=== PATIENT | male | born 2000 | race American Indian/Alaskan Native ===

== ENCOUNTER 2020-04-24 23:59 | Emergency (ER) | payer SELFPAY ==
[2020-04-25 04:17] VITALS: BP 126/72
--- NOTE | 2020-04-25 05:35 | Emergency Department Report ---
ED Male HPI - General Chief complaint: Urogenital-Male Stated complaint: POSS STD Source: patient Mode of arrival: Ambulatory Limitations: No Limitations - History of Present Illness Initial comments: Patient is a 19-year-old -[place] male with no past medical history who presents to the ED with complaint of acute onset persistent dysuria, penile pain, urinary frequency and urgency, and penile discharge for the last 2 days after having unprotected sexual intercourse 4 days ago. Patient states that the pain is worsened in the last 12 hours. Patient denies dizziness, syncope, fever, chills, cough, abdominal pain, testicular pain, low back pain, hematuria, diarrhea, nausea and vomiting. MD Complaint: penile discharge, dysuria, other (penile pain) -: Sudden, days(s) (2) Location: penis Radiation: none Severity: severe Severity scale (0 -10): 7 Quality: aching, burning, sharp Consistency: constant Improves with: none Worsens with: urination, palpation denies other symptoms, discharge. denies: swelling, rash, urinary retention, blood in urine, dysuria, fever, nausea/vomiting, incontinence, other - Related Data Sexually active: Yes (Unprotected) Previous Rx's Medication Instructions Recorded Last Taken Type Sulfamethoxazole/Trimethoprim 1 each PO BID #20 tablet 04/25/20 Unknown Rx [Bactrim DS TAB] Allergies Allergy/AdvReac Type Severity Reaction Status Date / Time ibuprofen Allergy Unknown Verified 04/25/20 00:04 ED Review of Systems ROS: Stated complaint: POSS STD Other details as noted in HPI Constitutional: denies: chills, fever Eyes: denies: eye pain, eye discharge, vision change ENT: denies: ear pain, throat pain Respiratory: denies: cough, shortness of breath, wheezing Cardiovascular: denies: chest pain, palpitations Endocrine: no symptoms reported Gastrointestinal: denies: abdominal pain, nausea, diarrhea Genitourinary: urgency, dysuria, frequency, discharge, other (penile pain) Musculoskeletal: denies: back pain, joint swelling, arthralgia Skin: denies: rash, lesions Neurological: denies: headache, weakness, paresthesias Psychiatric: denies: anxiety, depression Hematological/Lymphatic: denies: easy bleeding, easy bruising ED Past Medical Hx - Past Medical History Previous Medical History?: No - Surgical History Past Surgical History?: No - Social History Smoking Status: Current Every Day Smoker Substance Use Type: None - Medications Home Medications: Home Medications Medication Instructions Recorded Confirmed Last Taken Type Sulfamethoxazole/Trimethoprim 1 each PO BID #20 tablet 04/25/20 Unknown Rx [Bactrim DS TAB] ED Physical Exam - General Limitations: No Limitations General appearance: alert, in no apparent distress - Head Head exam: Present: atraumatic, normocephalic, normal inspection - Eye Eye exam: Present: normal appearance, PERRL, EOMI Pupils: Present: normal accommodation - ENT ENT exam: Present: normal exam, normal orophraynx, mucous membranes moist, TM's normal bilaterally, normal external ear exam - Neck Neck exam: Present: normal inspection, full ROM - Respiratory Respiratory exam: Present: normal lung sounds bilaterally. Absent: respiratory distress, wheezes, rales, rhonchi, stridor, chest wall tenderness, accessory muscle use, decreased breath sounds, prolonged expiratory - Cardiovascular Cardiovascular Exam: Present: regular rate, normal rhythm, normal heart sounds. Absent: systolic murmur, diastolic murmur, rubs, gallop - GI/Abdominal GI/Abdominal exam: Present: soft, normal bowel sounds. Absent: tenderness, guarding, rebound, hyperactive bowel sounds, hypoactive bowel sounds, organomegaly - External exam: Present: other (Genital exam deferred, patient opted out of it) - Extremities Exam Extremities exam: Present: normal inspection, full ROM, normal capillary refill - Back Exam Back exam: Present: normal inspection, full ROM. Absent: tenderness, CVA tenderness (R), CVA tenderness (L), muscle spasm, paraspinal tenderness, vertebral tenderness - Neurological Exam Neurological exam: Present: alert, oriented X3, CN II-XII intact, normal gait, reflexes normal - Psychiatric Psychiatric exam: Present: normal affect, normal mood - Skin Skin exam: Present: warm, dry, intact, normal color. Absent: rash ED Course Vital Signs 04/25/20 00:03 Temperature 97.6 F Pulse Rate 87 Respiratory 17 Rate Blood Pressure 126/72 O2 Sat by Pulse 97 Oximetry ED Medical Decision Making - Lab Data Result diagrams: 04/25/20 05:04 - Medical Decision Making This is a 19-year-old -[place] male with no past medical history who presents to the ED with complaint of acute onset persistent dysuria, penile pain, urinary frequency and urgency, and penile discharge for the last 2 days after having unprotected sexual intercourse 4 days ago. Patient states that the pain is worsened in the last 12 hours. In the ED, patient is alert and oriented x3 and is not in distress. Urinalysis showed significant urinary tract infection consistent with STD. Chlamydia and gonorrhea test results are pending. Patient was empirically treated in the ED for: Chlamydia and gonorrhea with azithromycin and Rocephin respectively. Patient was discharged home on medications for UTI and advised to ensure that his sexual partner also gets treated for the same at the [facility]. Patient was advised to follow-up with the [facility] for further evaluation and STD testing including HIV and syphilis. Patient was advised to return to the ED immediately if symptoms get worse. - Differential Diagnosis UTI; STD; Chlamydia; Gonorrhea; Critical care attestation.: If time is entered above; I have spent that time in minutes in the direct care of this critically ill patient, excluding procedure time. ED Disposition Clinical Impression: Urethritis, nonspecific, Acute urinary tract infection, STD (sexually transmit colin disease) Disposition: TO HOME OR SELFCARE Is pt being admited?: No Does the pt Need Aspirin: No Condition: Stable Instructions: Chlamydia, Male, Urinary Tract Infection, Adult, [id number], Urethritis, Adult, Gonorrhea Additional Instructions: Take medication with food, drink plenty of fluids and follow-up with your primary care physician or at the [facility] for further STD testing including HIV and syphilis. Return to the ED immediately if symptoms get worse. Prescriptions: Sulfamethoxazole/Trimethoprim [Bactrim DS TAB] 1 each PO BID #20 tablet Referrals: [facility] Depart [Outside] - 3-5 Days Forms: STI Treatment and Prevention Time of Disposition: 05:35 Print Language: PORTUGUESE
[2020-04-25 05:36] LABS: Bacteria,Urine 1+ /HPF (Negative); Bilirubin,Urine NEG (Negative); Blood,Urine NEG (Negative); Color,Urine Yellow (Yellow); Mucus,Urine FEW /HPF; Protein,Urine <15 mg/dL mg/dL (Negative)
[2020-04-25 05:36] LABS: Basophils # (Auto) 0.1 K/mm3 (0.0-0.1); Basophils % (Auto) 0.9 % (0.0-1.8); Eosinophils # (Auto) 0.1 K/mm3 (0.0-0.4); Eosinophils % (Auto) 1.5 % (0.0-4.3); Hematocrit 43.6 % (35.5-45.6); Hemoglobin 14.8 gm/dl (11.8-15.2); Lymphocytes # (Auto) 2.5 K/mm3 (1.2-5.4); Lymphocytes % (Auto) 31.9 % (13.4-35.0); Mean Corpuscular HGB Conc 34 % (32-34); Mean Corpuscular Volume 89 fl (84-94); Monocytes # (Auto) 0.5 K/mm3 (0.0-0.8); Monocytes % (Auto) 5.9 % (0.0-7.3); Platelet Count 169 K/mm3 (140-440); Red Blood Count 4.89 M/mm3 (3.65-5.03); Red Cell Distribution Width 13.8 % (13.2-15.2)
[2020-04-25] MEDS ORDERED: LIDOCAINE-MPF (1%) 10 MG/1 ML VIAL 5 ML INFILTRATI ONE (05:41)
[2020-04-25] MEDS ORDERED: AZITHROMYCIN 250 MG TAB PO ONE (05:41)
[2020-04-25 05:45] LABS: Alanine Aminotransferase 17 units/L (7-56); Albumin 4.8 g/dL (3.9-5); BUN/Creatinine Ratio 10; Blood Urea Nitrogen 11 mg/dL (9-20); Calcium 9.7 mg/dL (8.4-10.2); Hemolysis Index 24
== END 2020-04-25 05:56 | disposition home or self-care (01) ==
LOC: ED 23:59
DX: A63.8 Other specified predominantly sexually transmitted diseases (principal); N34.2 Other urethritis; N39.0 Urinary tract infection, site not specified; F17.200 Nicotine dependence, unspecified, uncomplicated; Z88.6 Allergy status to analgesic agent
CPT/HCPCS: 36415; 80053; 81001; 85025; 87086; 96372; 99283; J0696